=== PATIENT | female | born 1970 | race African-American/Black ===

== ENCOUNTER 2017-05-28 11:04 | Emergency (ER) | payer BC, OTHER ==
[~2017-05-28] VITALS: Ht 165.1 cm; Wt 69.4 kg
[2017-05-28 11:08] VITALS: BP 169/73
--- NOTE | 2017-05-28 11:19 | PHYS DOC ---
Past Medical History Past Medical History: No Pertinent History Past Surgical History: Tubal ligation Alcohol Use: Occasionally Drug Use: None Adult General Chief Complaint Chief Complaint: THUMB HPI HPI Patient is a 46 year old female who presents complaining of moderate pain to the left lateral thumb that began a couple days ago and got worse today when she hit it on her dresser while getting dressed. 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 Review of Systems Review of Systems Constitutional: Denies fever or chills [] Musculoskeletal: Left thumb pain Integument: Denies rash or skin lesions [] Neurologic: Denies headache, focal weakness or sensory changes [] Endocrine: Denies polyuria or polydipsia [] Physical Exam Physical Exam Constitutional: Well developed, well nourished, no acute distress, non-toxic appearance. [] Skin: Warm, dry, no erythema, no rash. [] Back: No tenderness, no CVA tenderness. [] Extremities: Left thumb with no obvious edema and obvious ecchymosis, no deformity to the left thumb. Tenderness diffusely throughout the left thumb. Full range of motion to the left thumb including flexion and extension of the PIP and DIP joints. Cap refill less than 2 seconds the left thumb. Adequate radial sensation to the left thumb. +2 left radial pulse. Neurologic: Alert and oriented X 3, normal motor function, normal sensory function, no focal deficits noted. [] Psychologic: Affect normal, judgement normal, mood normal. [] Current Patient Data Vital Signs Vital Signs Date Time Temp Pulse Resp B/P (MAP) Pulse Ox O2 Delivery O2 Flow Rate FiO2 05/28/17 11:08 98.2 78 18 98 Room Air 98.2 EKG EKG [] Radiology/Procedures Radiology/Procedures [] Course & Med Decision Making Course & Med Decision Making Pertinent Labs and Imaging studies reviewed. (See chart for details) Patient is in the ED with complaints of left thumb pain for couple days that got worse today after she hit it on a dresser. Left wrist x-rays interpreted by radiologist were negative for any acute findings. Recommended [id number] thumb spica. ED did not have one. Patient to be discharged with instructions to follow-up with orthopedic doctor in one week. Discharged with Diclofenac. Ice elevation encouraged. Dragon Disclaimer Dragon Disclaimer This electronic medical record was generated, in whole or in part, using a voice recognition dictation system. Departure Departure Impression: Primary Impression: Thumb contusion Additional Impression: Tendinitis of thumb Disposition: 01 HOME, SELF-CARE Condition: STABLE Referrals: SOBIA NEGRON PA-C (PCP) DIONNA MCELROY II, MD follow up in one week Patient Instructions: Contusion Additional Instructions: You were seen for left thumb pain. Your x-rays of the left thumb were negative for any acute findings. Most of the pain could be caused by inflammation especially if you use your thumb for typing. Consider asking your IT department at work to give you a thumb protection device. You can also buy over- the-counter thumb spica/protection splint at any drug store including [employer]. Follow-up with your primary care doctor or the provided orthopedic doctor in one week. Scripts Diclofenac Potassium (DICLOFENAC POTASSIUM) 50 Mg Tablet 1 TAB PO BID, #60 TAB 1 Refill Prov: RAMONA TRAN APRN 05/28/17 Problem Qualifiers Primary Impression: Thumb contusion Encounter type: initial encounter Damage to nail status: without damage Laterality: left Qualified Codes: S60.012A - Contusion of left thumb without damage to nail, initial encounter RAMONA TRAN APRN May 28, 2017 11:19
--- NOTE | 2017-05-28 11:41 | RAD ---
Left thumb, 3 views, 05/28/2017: History: Thumb injury, pain No fracture or dislocation is identified. The soft tissues are unremarkable. IMPRESSION: No acute left thumb abnormality is detected.
[2017-05-28] MEDS ORDERED: DICL50TA2 PO (12:13)
== END 2017-05-28 12:20 | disposition home or self-care (01) ==
LOC: ER 11:04
DX: S60.012A Contusion of left thumb without damage to nail, initial encounter (principal); M77.8 Other enthesopathies, not elsewhere classified; W22.03XA Walked into furniture, initial encounter; Y93.89 Activity, other specified; Y99.8 Other external cause status; Y92.89 Other specified places as the place of occurrence of the external cause
CPT/HCPCS: 29125; 73140; 99284-25